=== PATIENT | male | born 1975 | race Caucasian/White ===

== ENCOUNTER 2023-08-23 08:37 | Day surgery (SDC) | payer BC ==
[2023-08-23] MEDS: LIDOCAINE 1% (10MG/ML) FOR IV START INTRADERMA PRN (09:25)
[2023-08-23] MEDS: LACTATED RINGERS 1,000 ML IV SCH (09:25)
[2023-08-23] MEDS: DEXTROSE 50% SYRINGE 50 ML IVP ONE (09:44)
[2023-08-23 09:46] LABS: Glucose,Whole Blood 77 mg/dL (70-110)
[2023-08-23 10:01] VITALS: TEMP 98
[2023-08-23 10:08] LABS: Glucose,Whole Blood 118 mg/dL (70-110)
[2023-08-23] MEDS ORDERED: PROPOFOL 10 MG/ML 20 ML VIAL IV ONE (10:31)
[2023-08-23] MEDS ORDERED: LIDOCAINE 1% INJ 10MG/ML (20 ML MDV) ONE (10:31)
--- NOTE | 2023-08-23 10:46 | P.GSHP ---
History of Present Illness H&P Date: 08/23/23 Chief Complaint: Positive colon guard test This is a 48-year-old male who was recently positive colon guard test. Patient presents today for colonoscopy. Past Medical History Past Medical History: Diabetes Mellitus, Hyperlipidemia, Hypertension Additional Past Medical History / Comment(s): positive cologuard History of Any Multi-Drug Resistant Organisms: None Reported Past Surgical History: Appendectomy, Breast Surgery Additional Past Surgical History / Comment(s): teeth extraction Past Anesthesia/Blood Transfusion Reactions: No Reported Reaction Smoking Status: Former smoker - Past Family History Mother Family Medical History: Congestive Heart Failure (CHF) Medications and Allergies Home Medications Medication Instructions Recorded Confirmed Type Atorvastatin [Lipitor] 10 mg PO HS 08/22/23 08/22/23 History Dulaglutide [Trulicity] 3 mg SQ Q7D 08/22/23 08/22/23 History Gabapentin [Neurontin] 300 mg PO BID 08/22/23 08/22/23 History Terazosin [Hytrin] 10 mg PO QAM 08/22/23 08/22/23 History buPROPion XL [Wellbutrin XL] 300 mg PO QAM 08/22/23 08/22/23 History lisinopriL [Zestril] 5 mg PO HS 08/22/23 08/22/23 History metFORMIN HCL 1,000 mg PO HS 08/22/23 08/22/23 History Allergies Allergy/AdvReac Type Severity Reaction Status Date / Time No Known Allergies Allergy Verified 08/22/23 09:00 Surgical - Exam Vital Signs Temp Pulse Resp BP Pulse Ox 98.0 F 65 16 155/77 96 08/23/23 09:16 08/23/23 09:16 08/23/23 09:16 08/23/23 09:16 08/23/23 09:16 - General well developed, well nourished, no distress - Eyes PERRL - ENT normal pinna - Neck no masses - Respiratory normal expansion, normal respiratory effort - Cardiovascular Rhythm: regular - Abdomen Abdomen: soft, non tender Results - Labs Abnormal Lab Results - Last 24 Hours (Table) 08/23/23 Range/Units 10:01 POC Glucose (mg/dL) 118 H (70-110) mg/dL Assessment and Plan Assessment: Positive colon guard test. We'll perform colonoscopy.
--- NOTE | 2023-08-23 10:48 | P.OP ---
Date of Procedure: 08/23/23 Preoperative Diagnosis: Positive colon guard test Postoperative Diagnosis: Rectal polyp Procedure(s) Performed: Colonoscopy Anesthesia: MAC Surgeon: Robby Caro Pathology: other (Rectal polyp) Condition: stable Disposition: PACU Description of Procedure: The patient's placed on the lateral position. He received IV sedation. Digital rectal exam was performed. This revealed no abnormalities. Flexible colonoscope was then placed patient anus and passed throughout the entire colon. The ileocecal valve was visualized. The cecum, ascending and transverse colon appeared normal. The descending and sigmoid colon appeared normal. Scope back the rectum and this appeared normal except for a large polyp. This removed with the snare. Scope was withdrawn for patient.
[2023-08-23 11:27] LABS: Glucose,Whole Blood 73 mg/dL (70-110)
[2023-08-23 11:43] VITALS: BP 137/55; PULSE 55
[2023-08-23 11:44] VITALS: RESP 20
== END 2023-08-23 11:40 | disposition home or self-care (01) ==
LOC: ORWHC2ENDO 08:37
PROVIDERS: ATTEND Surgery
DX: D12.8 Benign neoplasm of rectum (principal); I10 Essential (primary) hypertension; E78.5 Hyperlipidemia, unspecified; E11.9 Type 2 diabetes mellitus without complications; F41.9 Anxiety disorder, unspecified; E66.9 Obesity, unspecified; Z68.41 Body mass index [BMI] 40.0-44.9, adult; Z79.84 Long term (current) use of oral hypoglycemic drugs; Z79.899 Other long term (current) drug therapy; Z82.49 Family history of ischemic heart disease and other diseases of the circulatory system; Z87.891 Personal history of nicotine dependence; Z98.890 Other specified postprocedural states; Z90.49 Acquired absence of other specified parts of digestive tract
CPT/HCPCS: 88305; 45385; J2001; J2704